=== PATIENT | female | born 1995 | race Caucasian/White ===

== ENCOUNTER 2021-06-19 10:40 | Inpatient (IN) ==
[~2021-06-19 10:40] MED LIST: *HR* Nalbuphine 10 MG/ML AMPUL IV PRN; EPHEDrine 50 MG/ML VIAL IVP PRN; Epidural Premix (fent/bupiv) 110 ML EP SCH; Famotidine 20 MG/2 ML VIAL IVP PRN; Lidocaine 1% 20 ML MDV INFILT PRN; Metoclopramide 10 MG/2 ML VIAL IVP PRN; Naloxone 0.4 MG/ML INJ IVP PRN
[2021-06-19] MEDS ORDERED: Ringers Solution, Lactated 1,000 ML IVC SCH (10:45)
[2021-06-19 11:41] LABS: Basophils % 0.2 %; Eosinophils % 0.2 %; Hematocrit 35.9 % (35.3-44.9); Hemoglobin 11.2 g/dL (11.5-15.4); Immature Granulocytes % 0.5 % (0-4); Lymphocytes % 14.6 %; Mean Corpuscular HGB Conc 31.2 g/dL (31.6-35.5); Mean Corpuscular Hemoglobin 24.2 pg (28.0-33.3); Mean Corpuscular Volume 77.7 fL (83.0-100.0); Mean Platelet Volume 11.3 fL (9.4-12.4); Monocytes # 0.6 K/mcL (0.0-1.3); Monocytes % 4.6 %; Neutrophils # 10.7 K/mcL (1.6-8.9); Platelet Count 343 K/mcL (140-400); Red Blood Count 4.62 M/mcL (3.82-4.97); Red Cell Distribution Width 18.2 % (11.5-14.5); Segmented Neutrophils % 79.9 %; White Blood Count 13.4 K/mcL (4.3-11.1)
[2021-06-19 12:01] LABS: Creatinine,Urine 84 mg/dL; Protein/Creatinine Ratio,Urine 0.19 mg/mg (0.00-0.20)
[2021-06-19 12:17] LABS: Influenza A PCR Negative (Negative); Influenza B PCR Negative (Negative); Resp. Syncytial Virus PCR Negative (Negative)
[2021-06-19 12:23] LABS: SARS-CoV-2 by PCR (In House) Negative (Negative)
[2021-06-19 13:13] LABS: Amphetamine Screen,Urine Negative ng/mL (Cutoff=1000); Barbiturate Screen,Urine Negative ng/mL (Cutoff=200); Benzodiazepines Screen,Urine Negative ng/mL (Cutoff=200); Cannabinoid Screen,Urine Negative ng/mL (Cutoff = 50); Cocaine Screen,Urine Negative ng/mL (Cutoff= 300); Opiate Screen,Urine Negative ng/mL (Cutoff=300); Phencyclidine Screen,Urine Negative ng/mL (Cutoff=25)
[2021-06-19 13:17] LABS: Alanine Aminotransferase 9 Units/L (7-52); Aspartate Amino Transferase 17 Units/L (13-39); BUN/Creatinine Ratio 13 (6-26); Blood Urea Nitrogen 8 mg/dL (6-20); Lactate Dehydrogenase 162 Units/L (140-271); Uric Acid 6.2 mg/dL (2.3-7.6); eGFR For African Americans > 60 (> 60); eGFR For Non-African Americans > 60 (> 60)
[2021-06-19] MEDS ORDERED: Acetaminophen 325 MG TABLET PO ONE ×2 (13:46→20:37)
[2021-06-20] MEDS ORDERED: Tetrahydrozoline 15 ML BOTTLE RIGHT EYE PRN (07:26)
[2021-06-20] MEDS ORDERED: Tetrahydrozoline 15 ML BOTTLE LEFT EYE PRN (07:26)
[2021-06-20] MEDS ORDERED: Acetaminophen 325 MG TABLET PO PRN (08:58)
[2021-06-20] MEDS ORDERED: Oxytocin 20 units/ LR 1000 mL 20 UNIT/1,000 ML BAG IVC SCH ×2 (12:15→18:20)
[2021-06-20] MEDS ORDERED: Ondansetron 4 MG/2 ML VIAL ONE (15:57)
[2021-06-20] MEDS ORDERED: Ondansetron 4 MG/2 ML VIAL IVP PRN (16:02)
[2021-06-20] MEDS ORDERED: Ondansetron ODT 4 MG TAB.RAPDIS SL PRN (18:20)
[2021-06-20] MEDS ORDERED: Benzocaine/Menthol 56 GM AEROSOL SPRAY TP PRN (18:20)
[2021-06-20] MEDS ORDERED: Rho Immune Globulin 1,500 UNIT SYRINGE IM PRN (18:20)
[2021-06-20] MEDS ORDERED: Measles/Mumps/Rubella Vacc 0.5 ML VIAL SQ PRN (18:20)
[2021-06-20] MEDS ORDERED: Lanolin 7 G OINT...G. TP PRN (18:20)
[2021-06-20] MEDS: Ibuprofen 600 MG TABLET PO SCH (20:22)
[2021-06-20] MEDS: Acetaminophen 325 MG TABLET PO SCH ×2 (20:24→21:37)
[2021-06-21] MEDS ORDERED: Neosporin OINT 15 GM TUBE TP ONE (00:04)
[2021-06-21] MEDS: Acetaminophen 325 MG TABLET PO SCH ×2 (03:17→06:53)
[2021-06-21] MEDS: Ibuprofen 600 MG TABLET PO SCH ×2 (03:56→11:58)
[2021-06-21 08:17] VITALS: BP 94/58; PULSE 93; TEMP 98.1; O2SAT 97
[2021-06-21] MEDS ORDERED: Prenatal Vit/FA 1 EACH TABLET PO SCH (09:00)
== END 2021-06-21 14:45 | disposition home or self-care (01) | DRG 806 ==
LOC: 1NENULAB → 1NENUOBS 06-20 20:28
PROVIDERS: ADMIT Registered Nurse; ATTEND Registered Nurse